=== PATIENT | male | born 1985 | race Caucasian/White ===

== ENCOUNTER 2020-04-06 23:15 | Emergency (ER) | payer SELFPAY ==
[~2020-04-06] VITALS: Ht 165.1 cm; Wt 87.5 kg
[2020-04-06 23:23] VITALS: BP 118/88
--- NOTE | 2020-04-06 23:26 | NUR ---
PT AMBULATED TO THE LOBBY TO A/W BED.
--- NOTE | 2020-04-06 23:54 | NUR ---
BEATRIZ RAMSEY EVALUATING PT
--- NOTE | 2020-04-07 00:03 | NUR ---
Patient discharged with v/s stable. Written and verbal after care instructions given and explained. Patient verbalized understanding. Ambulatory with steady gait. All questions addressed prior to discharge. Advised to follow up with PMD.
== END 2020-04-07 00:03 | disposition home or self-care (01) ==
LOC: MED 23:15
DX: F10.129 Alcohol abuse with intoxication, unspecified (principal); F17.200 Nicotine dependence, unspecified, uncomplicated; Z91.013 Allergy to seafood
CPT/HCPCS: 99283